=== PATIENT | female | born 1970 | race Caucasian/White ===

== ENCOUNTER 2022-07-12 12:31 | Emergency (ER) | payer OTHER ==
[~2022-07-12] VITALS: Ht 175.3 cm; Wt 103.4 kg
[2022-07-12] MEDS ORDERED: HYDROCODON-ACE1 EA10 PO (16:21)
== END 2022-07-12 16:48 | disposition home or self-care (01) ==
LOC: ED 12:31
DX: S29.012A Strain of muscle and tendon of back wall of thorax, initial encounter (principal); I10 Essential (primary) hypertension; J45.909 Unspecified asthma, uncomplicated; E11.9 Type 2 diabetes mellitus without complications; Z88.1 Allergy status to other antibiotic agents; Z88.8 Allergy status to other drugs, medicaments and biological substances; W18.30XA Fall on same level, unspecified, initial encounter
CPT/HCPCS: 70450; 71101; 72125; 72128; 99284-25

== ENCOUNTER 2024-03-20 10:14 | Emergency (ER) | payer SELFPAY ==
[~2024-03-20] VITALS: Ht 175.3 cm; Wt 96.3 kg
[~2024-03-20 10:14] MED LIST: HYDROCODON-ACE1 EA10 PO; PREDNISONE20 MG PO
--- OUTSIDE RECORDS SUMMARY | 2024-03-20 10:20 | XMS ---
PreManage Notification: DILIP ROSNE Security Kilnman Events No recent Security Events currently on file CRITERIA MET - [facility] [place] - 2 Visits in 30 Days CARE PROVIDERS -Anjelica- Dentist: Guardian Ad Litem [facility] PHONE: [phone] Fernando has no Care Guidelines for this patient. Lisbeth VISIT COUNT (12 MO.) 2 [facility] TOTAL 2 NOTE: Visits indicate total known visits. ED/C VISIT TRACKING (12 MO.) 03/20/2024 10:[address] [facility] [place] TYPE: Emergency COMPLAINT: - FOOT PAIN 02/22/2024 15:[address] [facility] [place] TYPE: Emergency COMPLAINT: - COLD SYMPTOMS DIAGNOSES: - Allergy status to other drugs, medicaments and biological substances - Cough, unspecified - COVID-19 - Essential (primary) hypertension - Type 2 diabetes mellitus without complications INPATIENT VISIT TRACKING (12 MO.) No inpatient visits to display in this time frame [id number]
[2024-03-20] MEDS ORDERED: AMP/SULBACTAM SOD 3 GM in SODIUM CHLORIDE 0.9% 100 ML IV ONE (11:15)
[2024-03-20] MEDS ORDERED: AMP/SULBACTAM SOD 3 GM VIAL IV ONE (11:37)
[2024-03-20 11:41] LABS: BASOPHILS 0.7 % (0-2); EOSINOPHILS 2.3 % (0-6); HEMATOCRIT 37.7 % (35.0-50.0); HEMOGLOBIN 12.6 g/dL (12.0-18.0); LYMPHOCYTES 35.5 % (24-44); MCH 28.8 (27-36); MCHC 33.4 g/dl (30-36); MCV 86.2 fl (81-99); MONOCYTES 7.8 % (0-12); NEUTROPHILS 53.7 % (39-80); PLATELET COUNT 208 K/uL (140-440); RBC 4.37 M/ul (4.3-5.7); RDW 13.9 (10.5-15.0)
[2024-03-20 11:57] LABS: ALBUMIN 3.5 g/dL (3.4-5.0); ALBUMIN/GLOBULIN RATIO 0.92 (1.1-2.4); ANION GAP 13.6 (7-21); BILIRUBIN, TOTAL 0.7 ng/dL (0.2-1.0); BUN/CREATININE RATIO 13.79 (6.0-28.6); CREATININE, SERUM 0.87 mg/dL (0.55-1.02); POTASSIUM 3.6 mmol/L (3.5-5.1); PROTEIN, TOTAL 7.3 g/dL (6.4-8.2)
[2024-03-20] MEDS ORDERED: METFORMIN HCL500 MG PO (12:40)
[2024-03-20] MEDS ORDERED: AMOX TR-K CLV1 EAC1 PO (12:40)
[2024-03-20 12:50] VITALS: BP 113/78
== END 2024-03-20 12:50 | disposition home or self-care (01) ==
LOC: ED 10:14
PROVIDERS: Emergency Medicine
DX: L03.116 Cellulitis of left lower limb (principal); E11.9 Type 2 diabetes mellitus without complications; I10 Essential (primary) hypertension; J45.909 Unspecified asthma, uncomplicated; Z88.1 Allergy status to other antibiotic agents; Z88.8 Allergy status to other drugs, medicaments and biological substances
CPT/HCPCS: 36415; 73630; 80053; 85025; 96365; 99283-25; J0295

== ENCOUNTER 2024-03-25 06:17 | Observation (INO) | payer MEDICAID ==
[~2024-03-25] VITALS: Ht 175.3 cm; Wt 95.5 kg
[2024-03-25] VITALS (7 sets, daily range): BP systolic 115–122; BP diastolic 63–68
[~2024-03-25 06:17] MED LIST changes: +AMOX TR-K CLV1 EAC1 PO; +METFORMIN HCL500 MG PO
[2024-03-25] MEDS ORDERED: LACTATED RINGER'S 1,000 ML IV ONE (06:30)
[2024-03-25 06:45] LABS: HEMATOCRIT 37.6 % (35.0-50.0); HEMOGLOBIN 12.4 g/dL (12.0-18.0); MCH 28.5 (27-36); MCHC 32.9 g/dl (30-36); MCV 86.6 fl (81-99); PLATELET COUNT 259 K/uL (140-440); RBC 4.34 M/ul (4.3-5.7); RDW 13.5 (10.5-15.0)
[2024-03-25] MEDS ORDERED: FAMOTIDINE 20 MG/ 2 ML VIAL IV ONE (06:45)
[2024-03-25] MEDS ORDERED: ondansetron HCL 4 MG/2 ML VIAL IV ONE (06:45)
[2024-03-25 06:59] LABS: ALBUMIN 3.8 g/dL (3.4-5.0); ALBUMIN/GLOBULIN RATIO 0.95 (1.1-2.4); ANION GAP 16.4 (7-21); BILIRUBIN, TOTAL 0.7 ng/dL (0.2-1.0); BUN/CREATININE RATIO 15.21 (6.0-28.6); CALCIUM 9.2 mg/dL (8.5-10.1); CREATININE, SERUM 1.38 mg/dL (0.55-1.02); MAGNESIUM 1.9 mg/dL (1.8-2.4); POTASSIUM 4.4 mmol/L (3.5-5.1); PROTEIN, TOTAL 7.8 g/dL (6.4-8.2)
[2024-03-25 07:19] LABS: BANDS, MANUAL DIFF 9; BASOPHILS, MANUAL DIFF 1; LYMPHOCYTES, MANUAL DIFF 10; MONOCYTES, MANUAL DIFF 3; NEUTROPHILS, MANUAL DIFF 77
[2024-03-25 07:20] LABS: EOSINOPHILS, MANUAL DIFF 0
[2024-03-25 08:10] LABS: BILIRUBIN, URINE NEGATIVE (negative); BLOOD/HGB, URINE NEGATIVE (Negative); KETONE, URINE SMALL (Negative); LEUK ESTERASE, URINE NEGATIVE (negative); NITRITE, URINE NEGATIVE (negative)
[2024-03-25] MEDS ORDERED: GLUCAGON,HUMAN RECOMBINANT 1 MG/ML VIAL SUB-Q PRN (08:30)
[2024-03-25] MEDS ORDERED: DEXTROSE 5% 1,000 ML IV PRN (08:30)
[2024-03-25] MEDS ORDERED: DEXTROSE 50% 50 ML SYR IV PRN ×2 (08:30)
[2024-03-25] MEDS ORDERED: IBLOOD GLUCOSE TEST STRIP 1 EA TEST XX PRN (08:30)
[2024-03-25] MEDS ORDERED: SODIUM CHLORIDE 0.9% 1,000 ML IV SCH (08:30)
[2024-03-25] MEDS ORDERED: ondansetron HCL 4 MG/2 ML VIAL IV PRN (08:30)
[2024-03-25] MEDS ORDERED: PROCHLORPERAZINE EDISYLATE 10 MG/2 ML VIAL IV PRN (08:30)
[2024-03-25] MEDS ORDERED: ACETAMINOPHEN 325 MG TAB PO PRN (08:30)
[2024-03-25] MEDS ORDERED: PANTOPRAZOLE SODIUM 40 MG TABEC PO SCH (09:00)
[2024-03-25] MEDS ORDERED: ENOXAPARIN SODIUM 40 MG/0.4 ML SYR SUB-Q SCH (09:00)
--- NOTE | 2024-03-25 09:30 | NUR ---
THIS RN BRINGS PT TO MEDICAL FLOOR FROM ED, RECEIVED REPORT FROM MARGARITA HERNÁNDEZ. PT'S DAUGHTER AT THE BEDSIDE. PT ABLE TO ANSWER OWN MEDICAL HX QUESTIONS. VSS. BREAKFAST TRAY PROVIDED. PT STATES NO NEEDS AFTER ADMISSION COMPLETE. CALL LIGHT WITHIN REACH.
[2024-03-25] MEDS ORDERED: IBLOOD GLUCOSE TEST STRIP 1 EA TEST VI SCH ×2 (09:45→12:00)
[2024-03-25] MEDS ORDERED: INSULIN LISPRO 100 UNIT/ML ML SUB-Q SCH ×2 (09:45→12:00)
[2024-03-25] MEDS ORDERED: DAPTOmycin 500 MG/10 ML VIAL IV SCH (10:15)
--- NOTE | 2024-03-25 10:59 | NUR ---
PT UP IN BED, EATING MEAL. FAMILY PRESENT IN ROOM. MEDICATION ADMINISTERED PER EMAR. PT DENIES ANY NEEDS AT THIS TIME, CALL LIGHT WITHIN REACH.
[2024-03-25] MEDS ORDERED: PHARMACY RENAL DOSE ADJUSTMENT 1 DOSE MISC PO SCH (12:00)
[2024-03-25] MEDS ORDERED: PIPERACILLIN/TAZOBACTAM 3.375 GM in DEXTROSE 5% 100 ML IV SCH (12:00)
--- NOTE | 2024-03-25 12:41 | NUR ---
medications reconciled
--- NOTE | 2024-03-25 13:22 | NUR ---
SPOKE WITH MARGARITA BATRES. STATES PATIENT INFORMED HER SHE HAS NOT BEEN TAKING MEDICATIONS DUE TO LACK OF INSURANCE. PATIENT HAS ISSUES WITH NON-HEALING WOUNDS. PATIENT DOES NOT MONITOR GLUCOSE LEVELS EITHER. PATIENT SLEEPING AND DOES NOT WAKE WHEN THIS NURSE ENTERS ROOM. ALLOWED TO REST. WILL RETURN TO SPEAK WITH PATIENT.
--- NOTE | 2024-03-25 13:25 | NUR ---
UR CLINICAL REVIEW: [facility] OBS CRITERIA FOR CELLULITIS SELF-PAY OBS 03/25/24 @ 0821 NO INSURANCE, WILL SPEAK WITH PATIENT AND REFER FOR POTENTIAL MEDICAID PLAN TO RETURN HOME AT [place] WHEN STABLE. 03/26/24
--- NOTE | 2024-03-25 13:29 | NUR ---
THIS RN NOTIFIES CASE MANAGEMENT OF PT STATING SHE HAS NO INSURANCE AND HAS NOT BEEN TAKING HER PRESCRIBED MEDICATIONS.
--- NOTE | 2024-03-25 14:53 | NUR ---
NOTE D/T MEWS SCORE: MD AWARE OF PT CONDITION, PT DECLINES TYLENOL OFFERED D/T 100.4 TEMPERATURE, STATES ASYMPTOMATIC AT THIS TIME.
--- NOTE | 2024-03-25 15:17 | NUR ---
PATIENT ALERT AND ORIENTED. STATES SHE LIVES IN RV. WORKS NIGHTS AT [employer] AT THE [employer]. [facility] STEPS TO GET INTO HER RV IS GETTING MORE DIFFICULT BUT SHE IS STILL ABLE TO GET IN AND OUT. [facility] SHE HAS NO DME. [facility] SHE IS STILL ABLE TO DRIVE. PATIENT HAS NO INSURANCE. [facility] SHE HAS BEEN REFERRED TO APPLY FOR MEDICAID MULTIPLE TIMES BUT DOES NOT QUALIFY FINANCIALLY. [facility] SHE HAS MULTIPLE MEDICATIONS SHE IS SUPPOSED TO BE TAKING BUT HAS BEEN UNABLE TO PAY FOR THEM. [facility] SHE IS HAVING NO ISSUES PAYING FOR UTILITIES OR FOOD. INFORMED PATIENT. STAFF WILL RETURN IN THE MORNING TO FURTHER DISCUSS OPTIONS REGARDING PRESCRIPTION MEDS.
--- NOTE | 2024-03-25 16:45 | NUR ---
WOUND PICTURES AND MEASUREMENTS TAKEN. SEE CHART FOR PICTURES, SEE COMPLEX WOUND ASSESSMENT AT 1645 FOR MEASUREMENTS. OPEN ULCER ON MEDIAL L GREAT TOE, CLOSED AREA WHICH APPEARS TO BE NEW WOUND BEGINNING BELOW OPEN ULCER IN SAME AREA. ULCER AND REDNESS ON L FOOT 5TH DIGIT. OPEN AREA ON R MEADIAL GREAT TOE, PT STATES IS NEWER THAN OTHER WOUND AREAS. PT STATES PAIN IS PRESENT IN LEFT FOOT WOUNDS, NO PAIN ON R SIDE PER PT. PT STATES NO NEEDS AT THIS TIME. PT RATES L FOOT PAIN 1/10 AT THIS TIME, DENIES NEED FOR PAIN CONTROL MEASURES. CALL LIGHT WITHIN REACH.
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
[2024-03-25] MEDS ORDERED: MELATONIN 3 MG TAB PO PRN (21:00)
--- OUTSIDE RECORDS SUMMARY | 2024-03-25 21:29 | XMS ---
PreManage Notification: DILIP ROSEN Security Income Tax Auditor Events No recent Security Events currently on file CRITERIA MET - [facility] - 2 Visits in 30 Days CARE PROVIDERS -Anjelica- Dentist: Custodial Officer [facility] PHONE: [phone] Fernando has no Care Guidelines for this patient. Lisbeth VISIT COUNT (12 MO.) 3 [facility] TOTAL 3 NOTE: Visits indicate total known visits. ED/UCC VISIT TRACKING (12 MO.) 03/25/2024 06:17 [facility] [place] TYPE: Emergency COMPLAINT: - VOMITING 03/20/2024 10:14 [facility] [place] TYPE: Emergency COMPLAINT: - FOOT PAIN DIAGNOSES: - Allergy status to other antibiotic agents - Allergy status to other drugs, medicaments and biological substances - Cellulitis of left lower limb - Essential (primary) hypertension - Type 2 diabetes mellitus without complications - Unspecified asthma, uncomplicated 02/22/2024 15:51 [facility] [place] TYPE: Emergency COMPLAINT: - COLD SYMPTOMS DIAGNOSES: - Allergy status to other drugs, medicaments and biological substances - Cough, unspecified - COVID-19 - Essential (primary) hypertension - Type 2 diabetes mellitus without complications INPATIENT VISIT TRACKING (12 MO.) No inpatient visits to display in this time frame [email or web address]
--- NOTE | 2024-03-25 21:55 | NUR ---
pt DROWSY, AWAKENS TO VOICE. IV SITE ASSESSED, IV ANTIBIOTIC INFUSING WNL. URINE HAT EMPTIED. pt HAS CALL LIGHT AND PERSONAL SUPPLIES IN REACH.
[2024-03-26] VITALS (10 sets, daily range): BP systolic 107–139; BP diastolic 66–75
--- NOTE | 2024-03-26 00:04 | NUR ---
CHECKED ON pt. RESTING IN BED ON RIGHT SIDE, EYES CLOSED. BREATHING UNLABORED. IV ANTIBIOTIC INFUSING ORDERED.
--- NOTE | 2024-03-26 01:28 | NUR ---
COAL EQUIPMENT OPERATOR AND RN OBTAINED VITALS AND I&O. PT STATES NO FURTHER NEEDS AT THIS TIME. CALL LIGHT PLACED WITHIN REACH.
--- NOTE | 2024-03-26 01:40 | NUR ---
pt SLEEPING, AWAKENS TO VOICE. VSS. pt DENIES PAIN. IV SITE ASSESSED, IV ANTIBIOTIC INFUSING WNL. pt DENIES TOILETING OR ADDITIONAL NEEDS.
[2024-03-26 05:40] LABS: BASOPHILS 0.7 % (0-2); EOSINOPHILS 1.3 % (0-6); HEMATOCRIT 33.5 % (35.0-50.0); HEMOGLOBIN 11.4 g/dL (12.0-18.0); LYMPHOCYTES 28.4 % (24-44); MCV 85.4 fl (81-99); MONOCYTES 6.5 % (0-12); NEUTROPHILS 63.1 % (39-80); PLATELET COUNT 226 K/uL (140-440); RBC 3.92 M/ul (4.3-5.7); RDW 13.5 (10.5-15.0)
--- NOTE | 2024-03-26 05:57 | NUR ---
pt AWAKE RESTING IN BED. VSS. pt DENIES PAIN. ASSESSMENT COMPLETE. EDEMA AND REDNESS IMPROVED FROM START OF SHIFT IN LLE. IV ANTIBIOTIC INFUSING WNL. pt PROVIDED WITH SF PUDDING, ICE WATER. CALL LIGHT IN REACH.
[2024-03-26 06:06] LABS: ALBUMIN 2.7 g/dL (3.4-5.0); ALBUMIN/GLOBULIN RATIO 0.73 (1.1-2.4); ANION GAP 11.2 (7-21); BILIRUBIN, TOTAL 0.4 ng/dL (0.2-1.0); BUN/CREATININE RATIO 13.26 (6.0-28.6); CALCIUM 9.2 mg/dL (8.5-10.1); CREATININE, SERUM 0.98 mg/dL (0.55-1.02); MAGNESIUM 1.9 mg/dL (1.8-2.4); PHOSPHORUS, INORGANIC 2.7 mg/dL (2.5-4.9); POTASSIUM 4.2 mmol/L (3.5-5.1); PROTEIN, TOTAL 6.4 g/dL (6.4-8.2); TSH, 3RD GENERATION 3.255 uIU/mL (0.358-3.740)
--- NOTE | 2024-03-26 07:30 | NUR ---
RECEIVED REPORT FROM MARGARITA MCCABE. PT SITTING UP IN BED AWAKE, REQUESTS COFFEE, GIVEN. PT STATES NO FURTHER NEEDS AT THIS TIME, CALL LIGHT WITHIN REACH.
--- NOTE | 2024-03-26 09:02 | NUR ---
PT SITTING UP IN BED VISITING WITH DAUGHTER AT THE BEDSIDE. PT DENIES PAIN OR NAUSEA AT THIS TIME. NO CHANGE SINCE PREVIOUS SHIFT TO WOUNDS ON BILAT. FEET. PT STATES SHE FEELS THAT SHE IS GETTING A NEW WOUND IN THE FRONT/MIDDLE OF PLANTAR SIDE OF L FOOT. PT IS EMOTIONAL THIS MORNING ABOUT NOT BEING ABLE TO WORK WHILE IN THE HOSPITAL. PT STATES NO NEEDS CURRENTLY. CALL LIGHT WITHIN REACH.
--- NOTE | 2024-03-26 10:20 | NUR ---
Met with Mary and her daughter. Discussed concern pt made a statement to staff she has not picked up any meds in over a year. Pt states she is over income , but does not work enough hours at [employer] to get medical insurance. Pt confirms she does not have money for her meds. Her spouse and she make approx $3000 per month each. They have multiple bills with their RV payment, space rent, car payment etc. Pt is wanting to apply for SS disability as she has multiple medical issues. Assisted her to find the online site for disability. Let her know I will call and check for resources for medication cost. I called and spoke with RASHAD and pt does not qualify for their services as she is over income. They did give me the information for the [place] [employer]cription Drug plan. Requirement is she needs to live in [place]. I also called Ralph about their $4 prescription drug plan. Some of her meds would qualify, but not her insulin. I returned to the room and gave pt a flyer with a QR code for the [place] plan. Pt is aware of the $4 plan at [facility] and uses it. Pt also gets a monthly food box from [employer] [facility] and has gone to [facility] [employer]. She will cont. to do this and work on her SSD. She denies need for assistance to download the sarina for the OPDP.
--- NOTE | 2024-03-26 10:30 | NUR ---
THIS RN TO BEDSIDE, SALINE LOCKS PT IV D/T PT GETTING UP TO SHOWER. PT STATES NO FURTHER NEEDS AT THIS TIME, CALL LIGHT WITHIN REACH.
--- NOTE | 2024-03-26 11:04 | NUR ---
VISITED DURING SPIRITUAL CARE ROUNDS. PT RECEIVING NURSING CARE; DID NOT INTERRUPT. PROVIDED PRAYER.
--- NOTE | 2024-03-26 11:58 | NUR ---
SEARCH ENGINE MARKETING STRATEGIST GOT PATIENT READY FOR SHOWER BY PROVIDING TOWELS, BED BATH BLANKET, AND FRESH GOWN. SEARCH ENGINE MARKETING STRATEGIST ALSO PROVIDED FRESH LINENS. RN WAS NOTIFIED ABOUT PATIENT NEEDING NORBERT HOOKED BACK UP. CALL LIGHT WITHIN REACH, NO FURTHER NEEDS AT THIS TIME.
--- NOTE | 2024-03-26 12:20 | NUR ---
IN TO ADMINISTER MEDICATION, SEE MAR. PT SITTING UP IN BED CONVERSING WITH DR. ADAME. MEDICATION ADMINISTERED, SEE MAR. PT ASSISTED WITH LUNCH TRAY PLACEMENT OVER LAP. PT DENIES ANY OTHER NEEDS AT THIS TIME. CALL LIGHT IN REACH. FAMILY IN ROOM.
--- NOTE | 2024-03-26 15:45 | NUR ---
UR CLINICAL REVIEW: [facility] OBS CRITERIA FOR CELLULITIS SELF-PAY OBS 03/25/24 @ 0821 NO INSURANCE, WILL SPEAK WITH PATIENT AND REFER FOR POTENTIAL MEDICAID PLAN TO RETURN HOME AT [place] WHEN STABLE. 03/27/24
--- NOTE | 2024-03-26 19:15 | NUR ---
REPORT RECEIVED FROM MEDARDO AVILA. pt RESTING IN THE BED. NO NEEDS AT THIS TIME. BOARD UPDATED. CALL LIGHT WITHIN REACH.
--- NOTE | 2024-03-26 21:33 | NUR ---
BANQUET CHEF OBTAINED VITALS AND I&O. PT ICE WATER REFILLED REQUESTED BY PT. PT STATES NO FURTHER NEEDS AT THIS TIME. CALL LIGHT WITHIN REACH.
--- NOTE | 2024-03-26 21:50 | NUR ---
ASSESSMENT DONE. SCHEDULED MEDICATION ADMINISTERED. IV ABX INFUSINS, IV ASSESSED, SEE MAR. pt DENIES ANY OTHER NEEDS AT THIS TIME. pt LEFT GREST TOE REDNESS IS WITHIN AREA AROUND TOE. pt STATES TOE ONLY HURTS IF TOUCHED. BG CHECKED WITH A RESULTS OF 221. SS INSULING ADMINISTER. pt STATES SHE HAS CHRONIC NEUROPATHY IN HER HANDS AND FEET. CALL LIGHT WITHIN REACH.
--- NOTE | 2024-03-26 23:15 | NUR ---
pt RESTING IN THE BED WITH EYES CLOSED. RR EVEN AND UNLABORED. CALL LIGHT WITHIN REACH.
[2024-03-27] VITALS (9 sets, daily range): BP systolic 117–158; BP diastolic 67–80
--- NOTE | 2024-03-27 01:08 | NUR ---
pt RESTING IN THE BED WITH EYES CLOSED. RR EVEN AND UNLABORED. CALL LIGHT WITHIN REACH.
--- NOTE | 2024-03-27 02:19 | NUR ---
PT SPILLED HER WATER CUP ON THE FLOOR. THIS TUBING DRIER USE A TOWEL TO CLEAN IT UP AND THEN GET A NEW CUP AND STRAW WITH FRESH ICE WATER. PT ALSO WANTED JELLO AND WAS GIVE SUGAR FREE JELLO.
--- NOTE | 2024-03-27 03:49 | NUR ---
pt RESTING IN THE BED WITH EYES CLOSED. RR EVEN AND UNLABORED. CALL LIGHT WITHIN REACH.
--- NOTE | 2024-03-27 05:30 | NUR ---
TOWBOAT CAPTAIN OBTIANED VITALS AND I&O. PT STATES NO FURTHER NEEDS AT THIS TIME. CALL LIGHT WITHIN REACH.
--- NOTE | 2024-03-27 06:40 | NUR ---
pt RESTED ALL NIGHT. REDNESS STAY AROUND LEFT GREAT TOE. SWELLING IN LEFT GREAT TOE HAS STARTED TO RECEED. IV ABX INFUSING PER ORDER.
--- NOTE | 2024-03-27 12:30 | NUR ---
Patient eating lunch at this time. Patient reports her pain is tolerable at this time. Legs elevated at this time, pedal pulse bilat intact. Patient reports she is wanting to discharge home, provider to see for plan of care. No current needs, personal supplies and call light within reach.
--- NOTE | 2024-03-27 15:36 | NUR ---
UR CONCURRENT CLINICAL REVIEW: [facility] OBS CRITERIA FOR CELLULITIS OUT OF STATE MEDICAID OBS 03/25/24 @ 0821 OUT OF STATE MEDICAID AUTH PENDING, WILL SEND CLINICALS IF REQUESTED PLAN TO RETURN HOME AT [place]. [facility] TODAY 03/28/24
--- NOTE | 2024-03-27 16:35 | NUR ---
VORB TO SALINE LOCK IV AT THIS TIME PER DR. DELEON.
[2024-03-27] MEDS ORDERED: AMOXICILLIN/CLAVULANATE K 875 MG TAB PO SCH (17:00)
--- NOTE | 2024-03-27 17:38 | NUR ---
Patient reports her left foot was draining. Gauze wrap placed over left foot from another nurse. Dressing is CDI. Iv fluids discontinued per provider order.
--- NOTE | 2024-03-27 19:20 | NUR ---
REPORT RECEIVED FROM DAY RN. PATIENT RESTING IN BED. DRESSING TO RIGHT FOOT IS CDI. DENIES ANY NEEDS AT THIS TIME. CALL LIGHT WITHIN REACH.
--- NOTE | 2024-03-27 20:26 | NUR ---
PATIENT ACCOUNT SPECIALIST OBTAINED VITALS AND I&O. BLOOD SUGAR CHECKED. BLOOD SUGAR IS 208. RN NOTIFED. PT STATES NO FURTHER NEEDS AT THIS TIME. CALL LIGHT WITHIN REACH.
--- NOTE | 2024-03-27 21:15 | NUR ---
PATIENT RESTING IN BED. IV SITE PATENT. DENIES ANY PAIN AT THIS TIME. DRESSING TO LEFT LATERAL FOOT WAS OFF. NOTED BROWNISH/YELLOW DRAINAGE TO OLD DRESSING. SILVIANO WOUND SLIGHTLY MASCERATED. NEW GAUZE WRAP APPLIED TO FOOT. LUNGS CTA. BOWEL TONES ACTIVE X 4. PATIENT REPORTS NO FEELING BELOW HER BELLY BUTTON, FEELS PAIN TO WOIUND ON HER LEFT FOOT WHILE PLACING THE NEW DRESSING. HS INSULIN ADMINISTERED. FRESH ICE WATER GIVEN. NO FURTHER NEEDS AT THIS TIME. CALL LIGHT WITHIN REACH.
--- NOTE | 2024-03-27 23:12 | NUR ---
PATIENT RESTING IN BED WITH EYES CLOSED. RESPIRATIONS EVEN AND UNLABORED. CALL LIGHT WITHIN REACH.
--- NOTE | 2024-03-28 00:01 | NUR ---
PATIENT RESTING IN BED WITH EYES CLOSED. RESPIRATIONS EVEN AND UNLABORED. CALL LIGHT WITHIN REACH.
--- NOTE | 2024-03-28 02:00 | NUR ---
PATIENT RESTING IN BED WITH EYES CLOSED. RESPIRATIONS EVEN AND UNLABORED. CALL LIGHT WITHIN REACH.
--- NOTE | 2024-03-28 04:02 | NUR ---
PATIENT RESTING IN BED LAYING ON HER LEFT SIDE. RESPIRATIONS EVEN AND UNLABORED. CALL LIGHT WITHIN REACH.
[2024-03-28 04:50] VITALS: BP 135/68
[2024-03-28 04:52] VITALS: BP 135/68
--- NOTE | 2024-03-28 05:07 | NUR ---
VSS, PATIENT DENIES ANY PAIN OR DISCOMFORT TO WOUND OF LEFT FOOT. NOTED DRESSING WAS COMING OFF. NEW DRESSING APPLIED TO WOUND. SMALL AMOUNT OF PURELENT DRAINAGE NOTED. PATIENT REQUESTING CRACKERS, AND COFFEE. ITEMS GIVEN ALONG WITH FRESH ICE WATER. VOIDING QUANITY SUFFICIENT. NO FURTHER NEEDS AT THIS TIME. CALL LIGHT WITHIN REACH.
[2024-03-28 06:56] LABS: BASOPHILS 0.7 % (0-2); EOSINOPHILS 2.6 % (0-6); HEMATOCRIT 33.6 % (35.0-50.0); HEMOGLOBIN 11.6 g/dL (12.0-18.0); LYMPHOCYTES 34.4 % (24-44); MCH 29.2 (27-36); MCHC 34.4 g/dl (30-36); MCV 84.9 fl (81-99); MONOCYTES 6.3 % (0-12); PLATELET COUNT 249 K/uL (140-440); RBC 3.95 M/ul (4.3-5.7); RDW 12.8 (10.5-15.0)
[2024-03-28 07:11] LABS: ALBUMIN 2.7 g/dL (3.4-5.0); ALBUMIN/GLOBULIN RATIO 0.69 (1.1-2.4); ANION GAP 11.3 (7-21); BILIRUBIN, TOTAL 0.3 ng/dL (0.2-1.0); BUN/CREATININE RATIO 13.33 (6.0-28.6); CALCIUM 8.8 mg/dL (8.5-10.1); CREATININE, SERUM 0.9 mg/dL (0.55-1.02); POTASSIUM 4.3 mmol/L (3.5-5.1); PROTEIN, TOTAL 6.6 g/dL (6.4-8.2)
--- NOTE | 2024-03-28 08:22 | NUR ---
PATIENT IN CHAIR AT THIS TIME. PATIENT INDEPENDENTLY MOVED TO CHAIR. BLOOD SUGAR HAS BEEN TAKEN. CALL LIGHT WITHIN REACH, NO FURTHER NEEDS AT THIS TIME.
[2024-03-28] MEDS ORDERED: AMOX TR-K CLV1 EAC1 PO (09:49)
[2024-03-28 10:00] VITALS: BP 136/67
== END 2024-03-28 10:45 | disposition home or self-care (01) ==
LOC: ED 06:17 → MS 06:18
PROVIDERS: Internal Medicine; ADMIT Family Medicine; ATTEND Family Medicine
DX: E11.621 Type 2 diabetes mellitus with foot ulcer (principal); L97.428 Non-pressure chronic ulcer of left heel and midfoot with other specified severity; R11.2 Nausea with vomiting, unspecified; N17.9 Acute kidney failure, unspecified; R01.1 Cardiac murmur, unspecified; I10 Essential (primary) hypertension; E03.9 Hypothyroidism, unspecified; J45.909 Unspecified asthma, uncomplicated; Z88.1 Allergy status to other antibiotic agents; Z88.8 Allergy status to other drugs, medicaments and biological substances; Z79.84 Long term (current) use of oral hypoglycemic drugs
CPT/HCPCS: 36415; 73630; 80053; 81003; 82553; 83036; 83690; 83735; 84100; 84443; 84550; 85025; 85651; 86140; 87040; 96361; 96365; 96366; 96372; 96374; 96375; 96376; 99285-25; A9270; G0378; J0878; J1650; J1815; J2405; J2543; J7030; J7121

== ENCOUNTER 2024-06-26 08:05 | Emergency (ER) | payer MEDICAID ==
[~2024-06-26] VITALS: Ht 175.3 cm; Wt 99.0 kg
[2024-06-26] MEDS ORDERED: METFORMIN HCL500 MG PO (08:50)
[2024-06-26] MEDS ORDERED: DICLOXACILLIN500 MG PO (08:50)
[2024-06-26 09:14] VITALS: BP 138/101
== END 2024-06-26 09:14 | disposition home or self-care (01) ==
LOC: ED 08:05
DX: E11.628 Type 2 diabetes mellitus with other skin complications (principal); I10 Essential (primary) hypertension; Z88.8 Allergy status to other drugs, medicaments and biological substances
CPT/HCPCS: 99283

== ENCOUNTER 2024-07-17 12:45 | Emergency (ER) | payer SELFPAY ==
[~2024-07-17] VITALS: Ht 175.3 cm; Wt 98.3 kg
[~2024-07-17 12:45] MED LIST changes: +DICLOXACILLIN500 MG PO
--- OUTSIDE RECORDS SUMMARY | 2024-07-17 13:05 | XMS ---
PreManage Notification: DILIP ROSEN Security Kick Press Operator Events No recent Security Events currently on file CRITERIA MET - [facility] - 2 Visits in 30 Days CARE PROVIDERS -Anjelica- Dentist: Research Epidemiologist [facility] PHONE: [phone] Fernando has no Care Guidelines for this patient. Lisbeth VISIT COUNT (12 MO.) 5 [facility] TOTAL 5 NOTE: Visits indicate total known visits. ED/C VISIT TRACKING (12 MO.) 07/17/2024 12:45 [facility] [place] TYPE: Emergency COMPLAINT: - POST OP PROBLEM 06/26/2024 08:05 [facility] [place] TYPE: Emergency COMPLAINT: - WOUND CHECK DIAGNOSES: - Allergy status to other drugs, medicaments and biological substances - Essential (primary) hypertension - Type 2 diabetes mellitus with other skin complications - Unspecified open wound, left foot, initial encounter 03/25/2024 06:17 [facility] [place] TYPE: Emergency COMPLAINT: - VOMITING 03/20/2024 10:14 [facility] [place] TYPE: Emergency COMPLAINT: - FOOT PAIN DIAGNOSES: - Allergy status to other antibiotic agents - Allergy status to other drugs, medicaments and biological substances - Cellulitis of left lower limb - Essential (primary) hypertension - Type 2 diabetes mellitus without complications - Unspecified asthma, uncomplicated 02/22/2024 15:[address] [facility] [place] [facility]: Emergency COMPLAINT: - COLD SYMPTOMS DIAGNOSES: - Allergy status to other drugs, medicaments and biological substances - Cough, unspecified - COVID-19 - Essential (primary) hypertension - Type 2 diabetes mellitus without complications INPATIENT VISIT TRACKING (12 MO.) 03/25/2024 06:18 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
[2024-07-17] MEDS ORDERED: SODIUM CHLORIDE 0.9% 1,000 ML IV ONE (13:15)
[2024-07-17 13:28] LABS: BASOPHILS 0.5 % (0-2); EOSINOPHILS 0.5 % (0-6); HEMATOCRIT 38.9 % (35.0-50.0); HEMOGLOBIN 13.1 g/dL (12.0-18.0); LYMPHOCYTES 12.9 % (24-44); MCH 28.8 (27-36); MCHC 33.6 g/dl (30-36); MCV 85.7 fl (81-99); MONOCYTES 6.6 % (0-12); NEUTROPHILS 79.5 % (39-80); PLATELET COUNT 219 K/uL (140-440); RBC 4.54 M/ul (4.3-5.7); RDW 13.4 (10.5-15.0)
[2024-07-17] MEDS ORDERED: DAPTOmycin 500 MG/10 ML VIAL IV ONE (13:30)
[2024-07-17 13:45] LABS: ALBUMIN 3.6 g/dL (3.4-5.0); ALBUMIN/GLOBULIN RATIO 0.86 (1.1-2.4); ANION GAP 18.1 (7-21); BILIRUBIN, TOTAL 0.5 ng/dL (0.2-1.0); BUN/CREATININE RATIO 13.33 (6.0-28.6); CALCIUM 9.6 mg/dL (8.5-10.1); CREATININE, SERUM 1.05 mg/dL (0.55-1.02); POTASSIUM 4.1 mmol/L (3.5-5.1); PROTEIN, TOTAL 7.8 g/dL (6.4-8.2)
[2024-07-17 13:49] LABS: LACTIC ACID, BLOOD 1.7 mmol/L (0.4-2.0)
[2024-07-17] MEDS ORDERED: METFORMIN HCL1000 MG PO (15:00)
[2024-07-17 15:16] VITALS: BP 135/96
== END 2024-07-17 15:17 | disposition home or self-care (01) ==
LOC: ED 12:45
PROVIDERS: Emergency Medicine
DX: L03.115 Cellulitis of right lower limb (principal); E11.65 Type 2 diabetes mellitus with hyperglycemia; I10 Essential (primary) hypertension; Z88.8 Allergy status to other drugs, medicaments and biological substances; Z79.84 Long term (current) use of oral hypoglycemic drugs
CPT/HCPCS: 80053; 83605; 85025; 96374; 99284-25; J0878; J7030